=== PATIENT | female | born 1960 | race Hispanic/Latino ===

== ENCOUNTER 2018-09-26 12:49 | Emergency (ER) | payer OTHER ==
--- NOTE | 2018-09-26 13:11 | Emergency Department Report ---
Chief Complaint: Vaginal Bleeding Stated Complaint: ABD PAIN/CLOTTING Time Seen by Provider: 09/26/18 13:08 - HPI History of Present Illness: [facility] VAG BLEEDING FOR A YEAR NOW COMPLAINING OF CLOTS AND LLQ MILD PAIN PMH OBESE DM HYPOTHYROID NO HEART HX/ NO STROKES/NON SMOKER/ NO CANCER HX RX SYNTHROID BP PILL WATER PILL K MSE COMPLETED MSE screening note: Focused history and physical exam performed. Due to findings the following was ordered: ED Disposition for MSE Condition: Stable
[2018-09-26 13:46] LABS: Hematocrit 39.3 % (30.3-42.9); Hemoglobin 13.4 gm/dl (10.1-14.3); Mean Corpuscular HGB Conc 34 % (30-34); Mean Corpuscular Volume 93 fl (79-97); Platelet Count 276 K/mm3 (140-440); Red Blood Count 4.24 M/mm3 (3.65-5.03); Red Cell Distribution Width 13.3 % (13.2-15.2)
[2018-09-26 14:12] LABS: Alanine Aminotransferase 21 units/L (7-56); Albumin 3.7 g/dL (3.9-5); BUN/Creatinine Ratio 14; Blood Urea Nitrogen 10 mg/dL (7-17); Calcium 9.1 mg/dL (8.4-10.2); Hemolysis Index 7
--- NOTE | 2018-09-26 15:14 | Emergency Department Report ---
ED Female HPI - General Chief complaint: Vaginal Bleeding Stated complaint: ABD PAIN/CLOTTING Time Seen by Provider: 09/26/18 13:08 Source: patient Mode of arrival: Ambulatory Limitations: No Limitations - History of Present Illness Initial comments: She is a 57-year-old female who presents to ED complaining of intermittent vaginal bleeding for the past 3 days. Patient states she's been passing heavy clots intermittently throughout the day. Patient states bleeding is not constant but when it does come it heavy and very cloudy. Patient does states she is experiencing some mild left lower pelvic cramping from time to time. Patient states she has GIVER who she follows up with at [facility] in [place] where she had a recent Pap 2017. Patient denies fevers/chills/dysuria/fatigue/dizziness, headache, nausea vomiting MD Complaint: vaginal bleeding - Related Data Previous Rx's Medication Instructions Recorded Last Taken Type Ibuprofen [Motrin] 800 mg PO Q8HR #30 tablet 09/26/18 Unknown Rx Allergies Allergy/AdvReac Type Severity Reaction Status Date / Time No Known Allergies Allergy Unverified 09/26/18 12:55 ED Review of Systems ROS: Stated complaint: ABD PAIN/CLOTTING Other details as noted in HPI Comment: All other systems reviewed and negative ED Past Medical Hx - Past Medical History Previous Medical History?: Yes Hx Hypertension: Yes Hx Congestive Heart Failure: Yes Hx Diabetes: Yes - Surgical History Past Surgical History?: No - Social History Smoking Status: Never Smoker Substance Use Type: None - Medications Home Medications: Home Medications Medication Instructions Recorded Confirmed Last Taken Type Ibuprofen [Motrin] 800 mg PO Q8HR #30 tablet 09/26/18 Unknown Rx ED Physical Exam - General Limitations: No Limitations General appearance: alert, in no apparent distress - Head Head exam: Present: atraumatic, normocephalic - Eye Eye exam: Present: normal appearance - ENT ENT exam: Present: mucous membranes moist - Neck Neck exam: Present: normal inspection - Respiratory Respiratory exam: Present: normal lung sounds bilaterally. Absent: respiratory distress - Cardiovascular Cardiovascular Exam: Present: regular rate, normal rhythm. Absent: systolic murmur, diastolic murmur, rubs, gallop - GI/Abdominal GI/Abdominal exam: Present: soft, normal bowel sounds. Absent: distended, tenderness - Extremities Exam Extremities exam: Present: normal inspection - Back Exam Back exam: Present: normal inspection - Neurological Exam Neurological exam: Present: alert, oriented X3 - Psychiatric Psychiatric exam: Present: normal affect, normal mood - Skin Skin exam: Present: warm, dry, intact, normal color. Absent: rash ED Course Vital Signs 09/26/18 13:08 Temperature 98.1 F Pulse Rate 63 Respiratory 18 Rate Blood Pressure 149/86 O2 Sat by Pulse 95 Oximetry - Consultations Consultation #1: ConsultED with Dr. Redding of [employer] attending. She recommended that patient follow up with her this week in her office. 09/26/18 18:23 ED Medical Decision Making - Lab Data Result diagrams: 09/26/18 13:32 09/26/18 13:32 Laboratory Last Values WBC 13.8 K/mm3 (4.5-11.0) H 09/26/18 13:32 RBC 4.24 M/mm3 (3.65-5.03) 09/26/18 13:32 Hgb 13.4 gm/dl (10.1-14.3) 09/26/18 13:32 Hct 39.3 % (30.3-42.9) 09/26/18 13:32 MCV 93 fl (79-97) 09/26/18 13:32 MCH 32 pg (28-32) 09/26/18 13:32 MCHC 34 % (30-34) 09/26/18 13:32 RDW 13.3 % (13.2-15.2) 09/26/18 13:32 Plt Count 276 K/mm3 (140-440) 09/26/18 13:32 Sodium 138 mmol/L (137-145) 09/26/18 13:32 Potassium 3.5 mmol/L (3.6-5.0) L 09/26/18 13:32 Chloride 98.5 mmol/L (98-107) 09/26/18 13:32 Carbon Dioxide 26 mmol/L (22-30) 09/26/18 13:32 Anion Gap 17 mmol/L 09/26/18 13:32 BUN 10 mg/dL (7-17) 09/26/18 13:32 Creatinine 0.7 mg/dL (0.7-1.2) 09/26/18 13:32 Estimated GFR > 60 ml/min 09/26/18 13:32 BUN/Creatinine Ratio 14 % 09/26/18 13:32 Glucose 139 mg/dL (65-100) H 09/26/18 13:32 Calcium 9.1 mg/dL (8.4-10.2) 09/26/18 13:32 Total Bilirubin 0.60 mg/dL (0.1-1.2) 09/26/18 13:32 AST 30 units/L (5-40) 09/26/18 13:32 ALT 21 units/L (7-56) 09/26/18 13:32 Alkaline Phosphatase 92 units/L (35-129) 09/26/18 13:32 Total Protein 7.3 g/dL (6.3-8.2) 09/26/18 13:32 Albumin 3.7 g/dL (3.9-5) L 09/26/18 13:32 Albumin/Globulin Ratio 1.0 % 09/26/18 13:32 Urine Color Red (Yellow) 09/26/18 14:56 Urine Turbidity Cloudy (Clear) 09/26/18 14:56 Urine pH 6.0 (5.0-7.0) 09/26/18 14:56 Ur Specific [place] 1.005 (1.003-1.030) 09/26/18 14:56 Urine Protein 100 mg/dl mg/dL (Negative) 09/26/18 14:56 Urine Glucose (UA) Neg mg/dL (Negative) 09/26/18 14:56 Urine Ketones Neg mg/dL (Negative) 09/26/18 14:56 Urine Blood Mod (Negative) 09/26/18 14:56 Urine Nitrite Neg (Negative) 09/26/18 14:56 Urine Bilirubin Neg (Negative) 09/26/18 14:56 Urine Urobilinogen < 2.0 mg/dL (<2.0) 09/26/18 14:56 Ur Leukocyte Esterase Tr (Negative) 09/26/18 14:56 Urine WBC (Auto) 55.0 /HPF (0.0-6.0) H 09/26/18 14:56 Urine RBC (Auto) > 182.0 /HPF (0.0-6.0) 09/26/18 14:56 U Epithel Cells (Auto) 3.0 /HPF (0-13.0) 09/26/18 14:56 Ur Transition Epith Cell 2 /HPF 09/26/18 14:56 - Radiology Data Radiology results: report reviewed, image reviewed PROCEDURE: US PELVIC COMPLETE TECHNIQUE: Ultrasound pelvis transabdominal HISTORY: VAG BLEEDING PERIMENOPAUSE FOR 1 Y COMPARISONS: Correlated with today's transvaginal exam FINDINGS: The uterus measures 9.7 x 5.1 x 8.0 cm. Anteriorly within the uterine body there are 2 subserosal foci measuring 4.9 x 5.4 x 4.6 cm and 3.3 x 3.8 x 4.8 cm most consistent with fibroids. Endometrial stripe is thickened 1.2 cm Within the left adnexa there is a complex partially solid and cystic mass measuring 16.6 x 4.9 x 14.2 cm. The ovaries are not distinctly identified. IMPRESSION: Endometrial thickening Probable uterine fibroids Left adnexal mass with a complex appearance. Further imaging with MRI or surgical evaluation recommended CTR 2 protocol initiated at the time of this dictation This document is electronically signed by Drew Gooden MD., September 26 2018 04:41:38 PM ET Transcribed By: JEMAL Dictated By: MARLO GOODEN MD Electronically Authenticated By: MARLO GOODEN MD Signed Date/Time: 09/26/18 2743 - Medical Decision Making Physical. Present with dysfunctional uterine bleed. Labs are within normal limits. Pelvic ultrasound shows a mass left side. She reported above. Discussed case with Dr. Redding [employer] recommends patient follows up with her office this week. Discussed this with the patient. Information given to patient and Dr. Redding is nonproductive call and make an appointment for this week. Patient is beginning placed since. She states that this time she is not cur rently bleeding. Signed vital signs are normal she is in no acute distress. Critical care attestation.: If time is entered above; I have spent that time in minutes in the direct care of this critically ill patient, excluding procedure time. ED Disposition Clinical Impression: Ovarian cyst, Dysfunctional uterine bleeding Disposition: DC-01 TO HOME OR SELFCARE Is pt being admited?: No Does the pt Need Aspirin: No Condition: Stable Instructions: Ovarian Cyst (ED), Dysfunctional Uterine Bleeding (ED) Additional Instructions: Make sure to follow up with the [employer] Dr. Redding is as discussed. Take all your medications as you've been prescribed. If you have any worsening symptoms or develop new symptoms please return to ED immediately. Prescriptions: Ibuprofen [Motrin] 800 mg PO Q8HR #30 tablet Referrals: JODY WELLS MD [Primary Care Provider] - 3-5 Days DOMINGO REDDING MD [Staff Physician] - 3-5 Days Forms: Work/School Release Form(ED) Time of Disposition: 18:25
[2018-09-26 15:25] LABS: Bilirubin,Urine NEG (Negative); Blood,Urine MOD (Negative); Color,Urine Red (Yellow); Urobilinogen,Urine < 2.0 mg/dL (<2.0)
[2018-09-26 15:52] LABS: RBC,Urine > 182.0 /HPF (0.0-6.0)
--- NOTE | 2018-09-26 16:43 | Ultrasound Report ---
PROCEDURE: US PELVIC COMPLETE TECHNIQUE: Ultrasound pelvis transabdominal HISTORY: VAG BLEEDING PERIMENOPAUSE FOR 1 Y COMPARISONS: Correlated with today's transvaginal exam FINDINGS: The uterus measures 9.7 x 5.1 x 8.0 cm. Anteriorly within the uterine body there are 2 subserosal foc i measuring 4.9 x 5.4 x 4.6 cm and 3.3 x 3.8 x 4.8 cm most consistent with fibroids. Endometrial stri pe is thickened 1.2 cm Within the left adnexa there is a complex partially solid and cystic mass measuring 16.6 x 4.9 x 14.2 cm. The ovaries are not distinctly identified. IMPRESSION: Endometrial thickening Probable uterine fibroids Left adnexal mass with a complex appearance. Further imaging with MRI or surgical evaluation recommen ded CTR 2 protocol initiated at the time of this dictation This document is electronically signed by Drew Berg MD., September 26 2018 04:41:38 PM ET
--- NOTE | 2018-09-26 16:45 | Ultrasound Report ---
PROCEDURE: US TRANSVAGINAL TECHNIQUE: Ultrasound pelvis transvaginal HISTORY: BLEEDING COMPARISONS: FINDINGS: The uterus measures 9.7 x 5.1 x 8.0 cm. Anteriorly within the uterine body there are 2 subserosal foc i measuring 4.9 x 5.4 x 4.6 cm and 3.3 x 3.8 x 4.8 cm most consistent with fibroids. Endometrial stri pe is thickened 1.2 cm Within the left adnexa there is a complex partially solid and cystic mass measuring 16.6 x 4.9 x 14.2 cm. The ovaries are not distinctly identified. IMPRESSION: Endometrial thickening Probable uterine fibroids Left adnexal mass with a complex appearance. Further imaging with MRI or surgical evaluation recommen ded CTR 2 protocol initiated at the time of this dictation . This document is electronically signed by Drew Berg MD., September 26 2018 04:43:28 PM ET
[2018-09-26 21:01] VITALS: BP 137/87
== END 2018-09-26 18:54 | disposition home or self-care (01) ==
LOC: ED 12:49
DX: N93.8 Other specified abnormal uterine and vaginal bleeding (principal); N83.202 Unspecified ovarian cyst, left side
CPT/HCPCS: 36415; 76830; 76856; 80053; 81001; 85027

== ENCOUNTER 2019-05-09 21:18 | Emergency (ER) | payer OTHER ==
[2019-05-09 22:52] LABS: Basophils % (Auto) 0.1 % (0.0-1.8); Hematocrit 21.3 % (30.3-42.9); Hemoglobin 7.5 gm/dl (10.1-14.3); Lymphocytes # (Auto) 1.3 K/mm3 (1.2-5.4); Lymphocytes % (Auto) 15.1 % (13.4-35.0); Mean Corpuscular HGB Conc 35 % (30-34); Mean Corpuscular Volume 106 fl (79-97); Monocytes # (Auto) 0.2 K/mm3 (0.0-0.8); Monocytes % (Auto) 2.6 % (0.0-7.3); Red Blood Count 2.01 M/mm3 (3.65-5.03); Red Cell Distribution Width 18.9 % (13.2-15.2)
[2019-05-09 22:59] LABS: Platelet Count 18 K/mm3 (140-440)
[2019-05-09 23:14] LABS: BUN/Creatinine Ratio 16; Blood Urea Nitrogen 13 mg/dL (7-17); Calcium 9.6 mg/dL (8.4-10.2); Hemolysis Index 0
[2019-05-09] MEDS ORDERED: SODIUM CHLORIDE 0.9% 1000 ML 1,000 ML IV ONE (23:55)
[2019-05-09] MEDS ORDERED: ONDANSETRON 4 MG/2 ML INJ IV ONE (23:55)
--- NOTE | 2019-05-09 23:57 | Emergency Department Report ---
ED N/V/D HPI - General Chief complaint: Nausea/Vomiting/Diarrhea Stated complaint: VOMITING Time Seen by Provider: 05/09/19 23:47 Source: patient Mode of arrival: Ambulatory Limitations: No Limitations - History of Present Illness Initial comments: 58-year-old female the past medical history of diabetes, hypertension, and ovarian cancer diagnosed this year status post bilateral nephrectomy, hysterectomy is a hospital complaining of ST or vomiting started at 5 PM after eating [employer]. Patient vomited "a lot" prior to arrival. She tried to take her po Prochloperazine but vomited up the medication. He denies hematemesis, coffee ground emesis, diarrhea, melena, hematochezia, abdominal pain, dysuria, or fever. She has not vomited since arrival to the ED. patient is currently on chemotherapy with last chemotherapy treatment April 20. She is due for laceration a chemotherapy May 18 and will be followed by radiation treatment. [facility] oncologist: Dr. Centeno - Related Data Home Medications Medication Instructions Recorded Confirmed Last Taken Prochlorperazine 10 mg PO Q6HR PRN 05/09/19 05/09/19 Unknown Previous Rx's Medication Instructions Recorded Last Taken Type Ibuprofen [Motrin] 800 mg PO Q8HR #30 tablet 09/26/18 Unknown Rx Ondansetron [Zofran Odt] 4 mg PO Q8HR PRN #20 tab.rapdis 05/10/19 Unknown Rx Allergies Allergy/AdvReac Type Severity Reaction Status Date / Time No Known Allergies Allergy Unverified 09/26/18 12:55 ED Review of Systems ROS: Stated complaint: VOMITING Other details as noted in HPI Comment: All other systems reviewed and negative ED Past Medical Hx - Past Medical History Previous Medical History?: Yes Hx Hypertension: Yes Hx Diabetes: Yes Hx of Cancer: Yes (Ovarian) - Surgical History Past Surgical History?: Yes Additional Surgical History: Bilateral Oophorectomy, Total Hysterectomy. Port a cath - Social History Smoking Status: Never Smoker Substance Use Type: None - Medications Home Medications: Home Medications Medication Instructions Recorded Confirmed Last Taken Type Ibuprofen [Motrin] 800 mg PO Q8HR #30 tablet 09/26/18 05/09/19 Unknown Rx Prochlorperazine 10 mg PO Q6HR PRN 05/09/19 05/09/19 Unknown History Ondansetron [Zofran Odt] 4 mg PO Q8HR PRN #20 tab.rapdis 05/10/19 Unknown Rx ED Physical Exam - General Limitations: No Limitations - Other Other exam information: General: No acute distress Head: Atraumatic Eyes: normal appearance ENT: Moist mucous membranes Neck: Normal appearance, no midline tenderness Chest: Clear to auscultation bilaterally CV: Regular rate and rhythm Abdomen: Soft, normal bowel sounds, mild right upper quadrant tenderness, nond istended, no rebound or guarding Back: Normal inspection Extremity: Normal inspection infection, full range of motion Neuro: Alert O x 3, no facial asymmetry, speech clear, no gross motor sensory deficit Psych: Appropriate behavior Skin: No rash ED Course Vital Signs 05/09/19 05/10/19 05/10/19 21:22 01:29 01:30 Temperature 97.4 F L Pulse Rate 55 L 64 Respiratory 18 10 L Rate Blood Pressure 154/60 142/80 O2 Sat by Pulse 94 99 98 Oximetry 05/10/19 01:46 Temperature Pulse Rate Respiratory 24 Rate Blood Pressure 142/80 O2 Sat by Pulse 96 Oximetry - Reevaluation(s) Reevaluation #1: 05/10/19 02:33 Patient feeling better ED treatment. No further vomiting. Started by mouth. Received Zofran and 1 L normal saline. ED Medical Decision Making - Lab Data Result diagrams: 05/09/19 22:30 05/09/19 22:30 Lab Results 05/09/19 05/09/19 05/09/19 Range/Units 22:30 22:30 Unknown WBC 8.6 (4.5-11.0) K/mm3 RBC 2.01 L (3.65-5.03) M/mm3 Hgb 7.5 L (10.1-14.3) gm/dl Hct 21.3 L (30.3-42.9) % MCV 106 H (79-97) fl MCH 37 H (28-32) pg MCHC 35 H (30-34) % RDW 18.9 H (13.2-15.2) % Plt Count 18 L* (140-440) K/mm3 Lymph % (Auto) 15.1 (13.4-35.0) % [place] % (Auto) 2.6 (0.0-7.3) % Eos % (Auto) 0.0 (0.0-4.3) % Baso % (Auto) 0.1 (0.0-1.8) % Lymph # 1.3 (1.2-5.4) K/mm3 [place] # 0.2 (0.0-0.8) K/mm3 Eos # 0.0 (0.0-0.4) K/mm3 Baso # 0.0 (0.0-0.1) K/mm3 Seg Neutrophils % 82.2 H (40.0-70.0) % Seg Neutrophils # 7.1 (1.8-7.7) K/mm3 Sodium 141 (137-145) mmol/L Potassium 4.1 (3.6-5.0) mmol/L Chloride 103.3 (98-107) mmol/L Carbon Dioxide 24 (22-30) mmol/L Anion Gap 18 mmol/L BUN 13 (7-17) mg/dL Creatinine 0.8 (0.7-1.2) mg/dL Estimated GFR > 60 ml/min BUN/Creatinine Ratio 16 % Glucose 187 H (65-100) mg/dL Calcium 9.6 (8.4-10.2) mg/dL Total Bilirubin 0.40 (0.1-1.2) mg/dL Direct Bilirubin < 0.2 (0-0.2) mg/dL Indirect Bilirubin 0.2 mg/dL AST 17 (5-40) units/L ALT 13 (7-56) units/L Alkaline Phosphatase 86 (35-129) units/L Total Protein 7.8 (6.3-8.2) g/dL Albumin 3.8 L (3.9-5) g/dL Albumin/Globulin Ratio 1.0 % Lipase 9 L (13-60) units/L Urine Color (Yellow) Urine Turbidity (Clear) Urine pH (5.0-7.0) Ur Specific [place] (1.003-1.030) Urine Protein (Negative) mg/dL Urine Glucose (UA) (Negative) mg/dL Urine Ketones (Negative) mg/dL Urine Blood (Negative) Urine Nitrite (Negative) Urine Bilirubin (Negative) Urine Urobilinogen (<2.0) mg/dL Ur Leukocyte Esterase (Negative) Urine WBC (Auto) (0.0-6.0) /HPF Urine RBC (Auto) (0.0-6.0) /HPF U Epithel Cells (Auto) (0-13.0) /HPF Urine Mucus /HPF 05/10/19 Range/Units 01:32 WBC (4.5-11.0) K/mm3 RBC (3.65-5.03) M/mm3 Hgb (10.1-14.3) gm/dl Hct (30.3-42.9) % MCV (79-97) fl MCH (28-32) pg MCHC (30-34) % RDW (13.2-15.2) % Plt Count (140-440) K/mm3 Lymph % (Auto) (13.4-35.0) % [place] % (Auto) (0.0-7.3) % Eos % (Auto) (0.0-4.3) % Baso % (Auto) (0.0-1.8) % Lymph # (1.2-5.4) K/mm3 [place] # (0.0-0.8) K/mm3 Eos # (0.0-0.4) K/mm3 Baso # (0.0-0.1) K/mm3 Seg Neutrophils % (40.0-70.0) % Seg Neutrophils # (1.8-7.7) K/mm3 Sodium (137-145) mmol/L Potassium (3.6-5.0) mmol/L Chloride (98-107) mmol/L Carbon Dioxide (22-30) mmol/L Anion Gap mmol/L BUN (7-17) mg/dL Creatinine (0.7-1.2) mg/dL Estimated GFR ml/min BUN/Creatinine Ratio % Glucose (65-100) mg/dL Calcium (8.4-10.2) mg/dL Total Bilirubin (0.1-1.2) mg/dL Direct Bilirubin (0-0.2) mg/dL Indirect Bilirubin mg/dL AST (5-40) units/L ALT (7-56) units/L Alkaline Phosphatase (35-129) units/L Total Protein (6.3-8.2) g/dL Albumin (3.9-5) g/dL Albumin/Globulin Ratio % Lipase (13-60) units/L Urine Color Yellow (Yellow) Urine Turbidity Clear (Clear) Urine pH 5.0 (5.0-7.0) Ur Specific [place] 1.021 (1.003-1.030) Urine Protein <15 mg/dl (Negative) mg/dL Urine Glucose (UA) Neg (Negative) mg/dL Urine Ketones Neg (Negative) mg/dL Urine Blood Neg (Negative) Urine Nitrite Neg (Negative) Urine Bilirubin Neg (Negative) Urine Urobilinogen < 2.0 (<2.0) mg/dL Ur Leukocyte Esterase Neg (Negative) Urine WBC (Auto) 2.0 (0.0-6.0) /HPF Urine RBC (Auto) 4.0 (0.0-6.0) /HPF U Epithel Cells (Auto) 3.0 (0-13.0) /HPF Urine Mucus 2+ /HPF - Medical Decision Making Plan discharge patient home with nausea vomiting possible food poisoning that started after eating [employer]. Minimal abdominal tenderness on exam resolved. Feeling better and tolerating by mouth intake after ED treatment. [place] cytopenia noted. Patient states she has a history of thrombocytopenia in the past. Pt denies bleeding sx. f/u advised - Differential Diagnosis pancreatitis, gastroenteritis, food poisoning, abdominal infection, cholecy Critical Care Time: No Critical care attestation.: If time is entered above; I have spent that time in minutes in the direct care of this critically ill patient, excluding procedure time. ED Disposition Clinical Impression: Nausea and vomiting, Thrombocytopenia, Anemia, Chemotherapy-induced thrombocytopenia Disposition: - TO HOME OR SELFCARE Is pt being admited?: No Does the pt Need Aspirin: No Condition: Stable Instructions: Thrombocytopenia (ED), Acute Nausea and Vomiting (ED), Anemia (ED) Additional Instructions: Take the medication as prescribed. Follow-up with your doctor or doctor/clinic provided. Her platelet counts are low today and are 18,000. The hemoglobin is 7.7. Follow-up with your doctor for further monitoring of her blood counts. Return if symptoms worsen as indicated by your discharge instructions. Prescriptions: Ondansetron [Zofran Odt] 4 mg PO Q8HR PRN #20 tab.rapdis PRN Reason: Nausea And Vomiting Referrals: your, oncologist [Other] - 3-5 Days PRIMARY CARE,MD [Primary Care Provider] - 2-3 Days Time of Disposition: 02:37
[2019-05-10 00:02] LABS: Alanine Aminotransferase 13 units/L (7-56); Albumin 3.8 g/dL (3.9-5)
[2019-05-10 00:07] LABS: Bilirubin,Direct < 0.2 mg/dL (0-0.2)
[2019-05-10 02:12] LABS: Bilirubin,Urine NEG (Negative); Blood,Urine NEG (Negative); Color,Urine Yellow (Yellow); Mucus,Urine 2+ /HPF; Protein,Urine <15 mg/dL mg/dL (Negative); Urobilinogen,Urine < 2.0 mg/dL (<2.0)
[2019-05-10 02:59] VITALS: BP 148/81
== END 2019-05-10 02:59 | disposition home or self-care (01) ==
LOC: ED 21:18
DX: D69.6 Thrombocytopenia, unspecified (principal); R11.2 Nausea with vomiting, unspecified; I10 Essential (primary) hypertension; E11.9 Type 2 diabetes mellitus without complications
CPT/HCPCS: 36415; 80048; 80076; 81001; 83690; 85025; 96374; 99283; J2405; J7030

== ENCOUNTER 2019-08-16 19:43 | Emergency (ER) | payer OTHER ==
[2019-08-16 20:26] VITALS: BP 128/86
--- NOTE | 2019-08-16 20:27 | Emergency Department Report ---
Blank Doc - Documentation Documentation: 58-year-old female that presents with generlized body aches, fever, and nausea. This initial assessment/diagnostic orders/clinical plan/treatment(s) is/are subject to change based on patient's health status, clinical progression and re- assessment by fellow clinical providers in the ED. Further treatment and workup at subsequent clinical providers discretion. Patient/guardians urged not to elope from the ED as their condition may be serious if not clinically assessed and managed. Initial orders include: 1- Patient sent to [facility] for further evaluation and treatment 2- labs 3- rap flu
[2019-08-16 20:46] LABS: Basophils % (Auto) 0.3 % (0.0-1.8); Eosinophils # (Auto) 0.2 K/mm3 (0.0-0.4); Eosinophils % (Auto) 2.4 % (0.0-4.3); Hematocrit 34.9 % (30.3-42.9); Lymphocytes # (Auto) 0.8 K/mm3 (1.2-5.4); Lymphocytes % (Auto) 9.5 % (13.4-35.0); Mean Corpuscular HGB Conc 34 % (30-34); Mean Corpuscular Volume 100 fl (79-97); Monocytes # (Auto) 0.9 K/mm3 (0.0-0.8); Monocytes % (Auto) 10.3 % (0.0-7.3); Platelet Count 142 K/mm3 (140-440); Red Blood Count 3.49 M/mm3 (3.65-5.03)
[2019-08-16 21:07] LABS: Alanine Aminotransferase 109 units/L (7-56); Albumin 3.8 g/dL (3.9-5); BUN/Creatinine Ratio 15; Blood Urea Nitrogen 12 mg/dL (7-17); Calcium 9.8 mg/dL (8.4-10.2); Hemolysis Index 11
[2019-08-17] MEDS ORDERED: SODIUM CHLORIDE 0.9% 1000 ML 1,000 ML IV ONE (00:09)
[2019-08-17] MEDS ORDERED: LACTATED RINGERS 1,000 ML IV ONE (00:11)
[2019-08-17] MEDS ORDERED: ONDANSETRON 4 MG/2 ML INJ IV ONE (00:12)
[2019-08-17] MEDS ORDERED: FAMOTIDINE 20 MG/2 ML INJ IV ONE (00:12)
[2019-08-17] MEDS ORDERED: POTASSIUM CHLORIDE ER 20 MEQ TAB PO ONE (00:49)
--- NOTE | 2019-08-17 00:59 | XRay Report ---
CHEST 2 VIEWS INDICATION / CLINICAL INFORMATION: cough. COMPARISON: None available. FINDINGS: SUPPORT DEVICES: Port-A-Cath is seen on the right. HEART / MEDIASTINUM: Minimally enlarged. LUNGS / PLEURA: No significant pulmonary or pleural abnormality. No pneumothorax. ADDITIONAL FINDINGS: Calcified right midlung granuloma and calcified right hilar lymph node. IMPRESSION: 1. No acute findings. Signer Name: Jorge Luis Vasquez MD Signed: 08/17/2019 12:55 AM Workstation Name: [id number]
[2019-08-17 02:12] LABS: Bilirubin,Urine NEG (Negative); Blood,Urine NEG (Negative); Color,Urine Amber (Yellow); Mucus,Urine FEW /HPF; Protein,Urine <15 mg/dL mg/dL (Negative)
--- NOTE | 2019-08-17 04:31 | Ultrasound Report ---
ULTRASOUND ABDOMEN, LIMITED (RIGHT UPPER QUADRANT) INDICATION: abdominal pain. COMPARISON: None available. FINDINGS: Pancreas: Visualized portion shows no significant abnormality. Liver: Mildly echogenic Gallbladder: No wall thickening or pericholecystic fluid but multiple stones are present with [place]oust[place] zhanna shadowing. Bile ducts: Normal. Common Bile Duct measures 4 mm. Free fluid: None. Additional Findings: None. IMPRESSION: 1. Cholelithiasis Signer Name: Jorge Luis Vasquez MD Signed: 08/17/2019 4:27 AM Workstation Name: [id number]
--- NOTE | 2019-08-17 04:47 | Emergency Department Report ---
ED N/V/D HPI - General Chief complaint: Fever Stated complaint: NAUSEA/STOMACH ACHE/FEVER Time Seen by Provider: 08/16/19 20:25 Source: patient Mode of arrival: Ambulatory Limitations: No Limitations - History of Present Illness Initial comments: Patient is a 58-year-old white female with a history of endometrial cancer and status post total hysterectomy followed by chemo radiation last radiation treatment which was 2 weeks ago presents to the ED with complaint of acute onset persistent nausea and vomiting and abdominal pain with subjective fever for the last 2 days. Patient states that she has been taking antiemetics that she has at home including Compazine and Zofran with no relief. Patient denies chest pain, shortness of breath, dizziness, syncope, headache, vaginal bleeding, hematemesis, hematochezia, diarrhea, dysuria, change in vision, cough, nasal and sinus congestion or back pain. MD complaint: nausea, vomiting, abdominal pain -: Sudden, days(s) (2) Description of Vomiting: food contents, watery Description of Diarrhea: other (None) Associated Abdominal Pain: Yes (diffuse) Location: diffuse Radiation: none Severity: moderate Pain Scale: 5 Quality: cramping, aching, dull Consistency: intermittent Improves with: none Worsens with: vomiting Context: other (currently uncergoing radiation for endometria cancer) Associated Symptoms: denies other symptoms, myalgias, fever/chills, loss of appetite, malaise, nausea/vomiting. denies: chest pain, cough, diaphoresis, rash, dysuria, shortness of breath, syncope, weakness - Related Data Home Medications Medication Instructions Recorded Confirmed Last Taken Prochlorperazine 10 mg PO Q6HR PRN 05/09/19 05/09/19 Unknown Previous Rx's Medication Instructions Recorded Last Taken Type Ibuprofen [Motrin] 800 mg PO Q8HR #30 tablet 09/26/18 Unknown Rx Ondansetron [Zofran Odt] 4 mg PO Q8HR PRN #20 tab.rapdis 05/10/19 Unknown Rx Famotidine [Pepcid] 20 mg PO Q12H #30 tablet 08/17/19 Unknown Rx traMADoL [Ultram] 50 mg PO Q6HR PRN #12 tablet 08/17/19 Unknown Rx Allergies Allergy/AdvReac Type Severity Reaction Status Date / Time No Known Allergies Allergy Unverified 09/26/18 12:55 ED Review of Systems ROS: Stated complaint: NAUSEA/STOMACH ACHE/FEVER Other details as noted in HPI Constitutional: chills, fever, malaise Eyes: denies: eye pain, eye discharge, vision change ENT: denies: ear pain, throat pain, congestion Respiratory: denies: cough, shortness of breath, SOB with exertion, wheezing Cardiovascular: denies: chest pain, palpitations, dyspnea on exertion, syncope, paroxysmal nocturnal dyspnea Endocrine: no symptoms reported Gastrointestinal: abdominal pain, nausea, vomiting. denies: diarrhea, hematemesis, hematochezia Genitourinary: denies: urgency, dysuria, discharge Musculoskeletal: denies: back pain, joint swelling, arthralgia Skin: denies: rash, lesions Neurological: denies: headache, weakness, paresthesias Psychiatric: denies: anxiety, depression Hematological/Lymphatic: denies: easy bleeding, easy bruising ED Past Medical Hx - Past Medical History Hx Hypertension: Yes Hx Congestive Heart Failure: Yes Hx Diabetes: Yes - Surgical History Additional Surgical History: Bilateral Oophorectomy, Total Hysterectomy. Port a cath - Social History Smoking Status: Never Smoker Substance Use Type: None - Medications Home Medications: Home Medications Medication Instructions Recorded Confirmed Last Taken Type Ibuprofen [Motrin] 800 mg PO Q8HR #30 tablet 09/26/18 05/09/19 Unknown Rx Prochlorperazine 10 mg PO Q6HR PRN 05/09/19 05/09/19 Unknown History Ondansetron [Zofran Odt] 4 mg PO Q8HR PRN #20 tab.rapdis 05/10/19 Unknown Rx Famotidine [Pepcid] 20 mg PO Q12H #30 tablet 08/17/19 Unknown Rx traMADoL [Ultram] 50 mg PO Q6HR PRN #12 tablet 08/17/19 Unknown Rx ED Physical Exam - General Limitations: No Limitations General appearance: alert, in no apparent distress - Head Head exam: Present: atraumatic, normocephalic, normal inspection - Eye Eye exam: Present: normal appearance, PERRL, EOMI Pupils: Present: normal accommodation - ENT ENT exam: Present: normal exam, normal orophraynx, mucous membranes moist, TM's normal bilaterally, normal external ear exam - Neck Neck exam: Present: normal inspection, full ROM - Respiratory Respiratory exam: Present: normal lung sounds bilaterally. Absent: respiratory distress, wheezes, rales, rhonchi, chest wall tenderness, accessory muscle use, decreased breath sounds - Cardiovascular Cardiovascular Exam: Present: regular rate, normal rhythm, normal heart sounds. Absent: systolic murmur, diastolic murmur, rubs, gallop - GI/Abdominal GI/Abdominal exam: Present: soft, normal bowel sounds. Absent: tenderness, guarding, hyperactive bowel sounds, organomegaly - Extremities Exam Extremities exam: Present: normal inspection, full ROM, normal capillary refill - Back Exam Back exam: Present: normal inspection, full ROM. Absent: tenderness, CVA tenderness (R), CVA tenderness (L), muscle spasm, vertebral tenderness - Neurological Exam Neurological exam: Present: alert, oriented X3, CN II-XII intact, normal gait, reflexes normal - Psychiatric Psychiatric exam: Present: normal affect, normal mood - Skin Skin exam: Present: warm, dry, intact, normal color. Absent: rash ED Course Vital Signs 08/16/19 20:22 Temperature 98.5 F Pulse Rate 75 Respiratory 18 Rate Blood Pressure 128/86 O2 Sat by Pulse 98 Oximetry ED Medical Decision Making - Lab Data Result diagrams: 08/16/19 20:35 08/16/19 20:35 - Radiology Data Radiology results: report reviewed, image reviewed Findings [facility] [address] [place] [address] Ultrasound Report Signed Patient: GISELA SILVA MR#: [id number] 87 : 1960 Acct:[id number] Age/Sex: 58 / F ADM Date: 08/16/19 Loc: ED Attending Dr: Ordering Physician: FRANCES PRICE Date of Service: 08/17/19 Procedure(s): US abdomen limited Accession Number(s): [id number] cc: FRANCES PRICE ULTRASOUND ABDOMEN, LIMITED (RIGHT UPPER QUADRANT) INDICATION: abdominal pain. COMPARISON: None available. FINDINGS: Pancreas: Visualized portion shows no significant abnormality. Liver: Mildly echogenic Gallbladder: No wall thickening or pericholecystic fluid but multiple stones are present with acoustical shadowing. Bile ducts: Normal. Common Bile Duct measures 4 mm. Free fluid: None. Additional Findings: None. IMPRESSION: 1. Cholelithiasis Signer Name: Jorge Luis Vasquez MD Signed: 08/17/2019 4:27 AM Workstation Name: [id number] Transcribed By: ZARA Dictated By: Jorge Luis Vasquez MD Electronically Authenticated By: Jorge Luis Vasquez MD Signed Date/Time: 08/17/19426 DD/ 4 TD/TT: Findings [facility] [address] [place] [address] XRay Report Signed Patient: GISELA SILVA MR#: [id number] [birth year] : 1960 Acct:[id number] Age/Sex: 58 / F ADM Date: 08/16/19 Loc: ED Attending Dr: Ordering Physician: FRANCES PRICE Date of Service: 08/17/19 Procedure(s): XR chest routine 2V Accession Number(s): [id number] cc: FRANCES PRICE Fluoro Time In Minutes: CHEST 2 VIEWS INDICATION / CLINICAL INFORMATION: cough. COMPARISON: None available. FINDINGS: SUPPORT DEVICES: Port-A-Cath is seen on the right. HEART / MEDIASTINUM: Minimally enlarged. LUNGS / PLEURA: No significant pulmonary or pleural abnormality. No pneumothorax. ADDITIONAL FINDINGS: Calcified right midlung granuloma and calcified right hilar lymph node. IMPRESSION: 1. No acute findings. Signer Name: Jorge Luis Vasquez MD Signed: 08/17/2019 12:55 AM Workstation Name: [id number] Transcribed By: ZARA Dictated By: Jorge Luis Vasquez MD Electronically Authenticated By: Jorge Luis Vasquez MD Signed Date/Time: 08/17/1954 DD/ TD/TT: - Medical Decision Making This is a 58-year-old female with a history of endometrial cancer and is currently on radiation up to 2 weeks ago presents to the ED with persistent intractable nausea and vomiting with diffuse abdominal pain and subjective fever. In the ED, patient is alert and oriented x3 and is not in distress with normal vital signs. Lab test results were reviewed and shows acute hypokalemia of 3.0 mmol/L; also hyperglycemia of 331 mg/dL; total bilirubin of 2.50, AST of 76, ALT of 109 and alk phos of 219. The rest of the lab test results including rapid influenza test were negative. Chest x-ray shows no acute cardiopulmonary abnormalities or pneumonitis. Urinalysis is unremarkable. Gallbladder ultrasound shows no gallbladder wall thickening or pericholecystic fluid but multiple stones are present with acoustical shadowing. Bile ducts: Normal. Common Bile Duct measures 4 mm. Patient was treated in the ED with normal saline 1 L IV bolus and lactated Ringer's 1 L IV bolus and antiemetics. On reevaluation, patient felt better the nausea and vomiting resolved and patient is hemodynamically stable. Patient was discharged home and advised to continue taking her prescribed antiemetics. Patient was discharged home on pain medication and also given a referral to the general surgeon on-call Dr. Demarco for follow-up of her gallstones. Patient was advised to contact Dr. Demarco's first thing in the morning to schedule a follow-up appointment. Patient was however advised to return to the ED immediately if symptoms get worse. - Differential Diagnosis Flu like; Bronchitis; pneumonia; UTI; Cholecystitis; Cholelithiasis Critical care attestation.: If time is entered above; I have spent that time in minutes in the direct care of this critically ill patient, excluding procedure time. ED Disposition Clinical Impression: Nausea and vomiting in adult, Acute hypokalemia Gallstones without obstruction of gallbladder Qualifiers: Cholelithiasis location: gallbladder Cholecystitis presence: without cholecystitis Qualified Code(s): K80.20 - Calculus of gallbladder without cholecystitis without obstruction Disposition: DC-01 TO HOME OR SELFCARE Is pt being admited?: No Does the pt Need Aspirin: No Condition: Stable Instructions: Hypokalemia (ED), Acute Nausea and Vomiting (ED), Biliary Colic (ED), Cholelithiasis (ED) Additional Instructions: Take medications with food, drink plenty of fluids and follow up with the General Surgeon Dav Major for follow up. Return to the ED immediately if symptoms get worse. Prescriptions: Famotidine [Pepcid] 20 mg PO Q12H #30 tablet traMADoL [Ultram] 50 mg PO Q6HR PRN #12 tablet PRN Reason: Pain Referrals: RADHA OLSEN MD [Primary Care Provider] - 3-5 Days Time of Disposition: 05:00 Print Language: LUXEMBOURG[place]
== END 2019-08-17 05:10 | disposition home or self-care (01) ==
LOC: ED 19:43
DX: K80.20 Calculus of gallbladder without cholecystitis without obstruction (principal); E87.6 Hypokalemia; I11.0 Hypertensive heart disease with heart failure; I50.9 Heart failure, unspecified; E11.9 Type 2 diabetes mellitus without complications; Z90.710 Acquired absence of both cervix and uterus; Z90.79 Acquired absence of other genital organ(s); Z79.899 Other long term (current) drug therapy
CPT/HCPCS: 36415; 71046; 76705; 80053; 81001; 85025; 87400; 96361; 96374; 96375; 99284; J2405; J7030; J7120